=== PATIENT | female | born 1990 | race Caucasian/White ===

== ENCOUNTER 2018-06-19 13:37 | Emergency (ER) | payer MEDICAID ==
[~2018-06-19] VITALS: Ht 160 cm; Wt 56.7 kg
[2018-06-19 14:19] VITALS: BP 114/62
[2018-06-19] MEDS ORDERED: TETRACAINE HCL 0.5% OPTH(EYE) SOLN 4ML ONE (15:22)
[2018-06-19] MEDS ORDERED: TETRACAINE HCL 0.5% OPTH(EYE) SOLN 4ML LEFTEYE ONE (15:30)
== END 2018-06-19 15:50 | disposition home or self-care (01) ==
LOC: ER 13:37
DX: S05.01XA Injury of conjunctiva and corneal abrasion without foreign body, right eye, initial encounter (principal); F17.210 Nicotine dependence, cigarettes, uncomplicated; X58.XXXA Exposure to other specified factors, initial encounter; Y93.89 Activity, other specified; Y92.89 Other specified places as the place of occurrence of the external cause; Y99.8 Other external cause status